=== PATIENT | male | born 1985 | race Two or more races ===

== ENCOUNTER 2024-01-05 22:29 | Emergency (ER) | payer MEDICAID, OTHER ==
[~2024-01-05] VITALS: Ht 170.2 cm; Wt 108.2 kg
[2024-01-05 23:12] VITALS: BP 125/78; PULSE 115; RESP 16; O2SAT 100
[2024-01-05 23:53] LABS: Urine Bacteria None Seen /hpf (None Seen)
[2024-01-06 00:06] LABS: Urine Blood 1+ /uL (Negative); Urine Clarity Clear (Clear); Urine Color Light-Yellow (Yellow); Urine Mucus FEW (None Seen); Urine Protein, UAD TRACE (Negative); Urine Specific Gravity 1.023 (1.001-1.035); Urine Urobilinogen Normal (Negative); Urine WBC <1 /hpf (0 - 3)
[2024-01-06] MEDS ORDERED: SODIUM CHLORIDE 0.9% 1,000 ML IV ONE (01:30)
[2024-01-06 01:39] LABS: Basophils # (auto) 0.1 10 ^3/uL (0-0.2); Basophils % (auto) 0.8 % (0.0-2.0); Eosinophils # (auto) 0.1 10 ^3/uL (0-0.8); Eosinophils % (auto) 1.1 % (0.0-7.0); Hematocrit 49.2 % (41.0-53.0); Hemoglobin 17.4 g/dL (13.5-17.5); Lymphocytes # (auto) 2.9 10 ^3/uL (0.4-5.4); Lymphocytes % (auto) 39.3 % (10.0-50.0); Mean Corpuscular Hemoglobin 29.4 pg (28.0-32.0); Mean Corpuscular Hgb Conc. 35.3 g/dL (32.0-36.0); Mean Corpuscular Volume 83.3 fL (80.0-100.0); Monocytes # (auto) 0.6 10 ^3/uL (0-1.3); Monocytes % (auto) 8.1 % (0.0-12.0); Neutrophils # (auto) 3.7 10 ^3/uL (1.6-8.6); Neutrophils % (auto) 50.7 % (37.0-80.0); Red Blood Cells 5.91 10^6/uL (4.5-5.90); Red Cell Distribution Width 13.2 % (11.8-14.3); White Blood Cell 7.4 10^3/uL (4.4-10.8)
[2024-01-06 01:57] LABS: Alanine Aminotransferase 119 U/L (7-40); Albumin 4.6 g/dL (3.2-4.8); Alkaline Phosphatase 101 U/L (46-116); Anion Gap 8 (5-15); Aspartate Aminotransferase 62 U/L (13-40); BUN/Creatinine Ratio 12.9 (10.0-20.0); Blood Urea Nitrogen 12 mg/dL (9-23); Calcium 10.6 mg/dL (8.7-10.4); Carbon Dioxide 24 mmol/L (20-30); Chloride 99 mmol/L (98-107); Glucose 246 mg/dL (74-106); Potassium 3.3 mmol/L (3.5-5.1); Sodium 131 mmol/L (136-145)
[2024-01-06 01:58] LABS: Bilirubin, Total 0.6 mg/dL (0.2-1.0); Total Protein 7.5 g/dL (5.7-8.2)
== END 2024-01-06 03:33 | disposition home or self-care (01) ==
LOC: ER 22:29
DX: E11.65 Type 2 diabetes mellitus with hyperglycemia (principal)
CPT/HCPCS: 36415; 80053; 81001; 82962; 83880; 84484; 85025

== ENCOUNTER 2025-05-12 15:51 | Inpatient (IN) | payer MEDICAID, OTHER ==
[~2025-05-12] VITALS: Ht 170.2 cm; Wt 96.4 kg
[2025-05-12] MEDS: SODIUM CHLORIDE 0.9% 1,000 ML IV ONE (16:39)
[2025-05-12] MEDS: ONDANSETRON HCL 4 MG/2 ML VIAL IV ONE (16:39)
[2025-05-12] MEDS: FAMOTIDINE (10MG/ML) 2ML VL IV ONE (16:39)
[2025-05-12] MEDS: MORPHINE SULFATE 4 MG/ML SYR/VIAL IV ONE (16:40)
[2025-05-12 16:46] VITALS: PULSE 95; RESP 16; O2SAT 95
--- NOTE | 2025-05-12 16:46 | ED.PDOC ---
History of Present Illness HPI Comments 39-year-old male presents to the ER with a prior medical history of hypertension, high lipids, diabetes and then chief complaint of flank pain. Patient reports on recently being [place]03[place]20[place] [facility] [place] and was admitted for three days and sent home on Tuesday of 05/05/2025. Patient states on still having the left flank pain for which is now tender to touch. Denies any other symptoms at this time. Denies chills, fever, N/V/D, SOB, CP. No other associated symptoms, modifiers, recent injuries or sick contacts present at this time. Chief Complaint: Flank Pain Time Seen by MD: 16:15 Reviewed Notes: Nurses Notes, Medications, Allergies Allergies: Coded Allergies: NO KNOWN ALLERGIES (Unverified , 01/06/24) Information Source: Patient Mode of Arrival: Ambulatory Severity: Moderate Timing: Days Duration: Days Prehospital treatment: None Past Medical History PAST MEDICAL HISTORY: DM, High Lipids, HTN Surgical History: Denies all surgeries Family History Family History: Reviewed,noncontributory to illness, Unknown Social History Smoker: Non-Smoker Alcohol: Denies ETOH Use Drugs: Denies Drug Use Lives In: Home Constitutional: denies: chills, diaphoresis, fatigue, fever, malaise, sweats, weakness, others EENTM: denies: blurred vision, double vision, ear bleeding, ear discharge, ear drainage, ear pain, ear ringing, eye pain, eye redness, hearing loss, mouth pain, mouth swelling, nasal discharge, nose bleeding, nose congestion, nose pain, photophobia, tearing, throat pain, throat swelling, voice changes, others Respiratory: denies: cough, hemoptysis, orthopnea, SOB at rest, shortness of breath, SOB with excertion, stridor, wheezing, others Cardiovascular: denies: chest pain, dizzy spells, diaphoresis, Dyspnea on exertion, edema, irregular heart beat, left arm pain, lightheadedness, palpitations, PND, syncope, others Gastrointestinal: denies: abdomen distended, abdominal pain, blood streaked bowels, constipated, diarrhea, dysphagia, difficulty swallowing, hematemesis, melena, nausea, poor appetite, poor fluid intake, rectal bleeding, rectal pain, vomiting, others Genitourinary: reports: flank pain; denies: burning, dysuria, frequency, hematuria, incontinence, penile discharge, penile sore, pain, testicle pain, testicle swelling, urgency, others Neurological: denies: dizziness, fainting, headache, left sided numbness, left sided weakness, numbness, paresthesia, pre-existing deficit, right sided numbness, right sided weakness, seizure, speech problems, tingling, tremors, weakness, others Musculoskeletal: denies: back pain, gout, joint pain, joint swelling, muscle pain, muscle stiffness, neck pain, others Integumetry: denies: bruises, change in color, change in hair/nails, dryness, laceration, lesions, lumps, rash, wounds, others Allergic/Immunocompromised: denies: Difficulty Healing, Frequent Infections, Hives, Itching, others Hematologic/Lymphatic: denies: anemia, blood clots, easy bleeding, easy bruising, swollen glands, others Endocrine: denies: excessive hunger, excessive sweating, excessive thirst, excessive urination, flushing, intolerance to cold, intolerance to heat, unexplained weight gain, unexplained weight loss, others Psychiatric: denies: anxiety, bipolar disorder, depression, hopeless, panic disorder, schizophrenia, sleepless, suicidal, others All Other Systems: Reviewed and Negative Physical Exam Exam Comments Sweating, ill-appearing General Appearance: No Apparent Distress, Normal HEENT: Normal ENT Inspection, Pharynx Normal, TMs Normal Neck: Full Range of Motion, Non-Tender, Normal, Normal Inspection Respiratory: Chest Non-Tender, Lungs Clear, No Accessory Muscle Use, No Respiratory Distress, Normal Breath Sounds Cardiovascular: No Edema, No JVD, No Murmur, No Gallop, Normal Peripheral Pulses, Regular Rate/Rhythm Breast Exam: Deferred Gastrointestinal: No Organomegaly, Non Tender, No Pulsatile Mass, Normal Bowel Sounds, Soft Genitalia: Deferred Pelvic: Deferred Rectal: Deferred Extremities: No calf tenderness, Normal capillary refill, Normal inspection, Normal range of motion, Non-tender, No pedal edema Musculoskeletal : Apperance: Normal Neurologic: Alert, automobile painter II-XII nml as Tested, No Motor Deficits, Normal Affect, Normal Mood, No Sensory Deficits Cerebellar Function: Normal Reflexes: Normal Skin: Dry, Normal Color, Warm Lymphatic: No Adenopathy Was a procedure done? Was a procedure done?: No Differential Dx Considerations may include: Gastroenteritis, gastritis, pancreatitis, electrolyte abnormality X-Ray, Labs, Meds, VS Vital Signs Date Time Temp Pulse Resp B/P (MAP) Pulse Ox O2 Delivery O2 Flow Rate FiO2 05/12/25 17:10 94 16 142/95 05/12/25 16:46 95 16 95 Room Air* 0 21 05/12/25 16:45 97.6 95 16 127/79 (95) 98 97.6 05/12/25 16:40 95 18 127/79 05/12/25 15:52 97.6 97 17 97/59 99 97.6 Lab Test 05/12/25 16:23 05/12/25 16:20 Range/Units Urine Color Light-yellow Yellow Urine Clarity Clear Clear Urine pH 7.0 5.0-9.0 Urine Specific [place] 1.028 1.001-1.035 Urine Protein Negative Negative Urine Ketones Negative Negative Urine Blood Trace H Negative /uL Urine Nitrite Negative Negative Urine Bilirubin Negative Negative Urine Urobilinogen Normal Negative mg/dL Urine Leukocyte Esterase Negative Negative /uL Urine RBC 3 0 - 3 /hpf Urine Microscopic WBC 1 0-3 /HPF Urine Squamous Epithelial Cells None seen <5 /hpf Urine Bacteria None seen None Seen /hpf Urine Glucose 4+ H Normal mg/dL White Blood Count 9.0 4.4-10.8 10^3/uL Red Blood Count 5.57 4.5-5.90 10^6/uL Hemoglobin 16.1 13.5-17.5 g/dL Hematocrit 45.4 41.0-53.0 % Mean Corpuscular Volume 81.6 80.0-100.0 fL Mean Corpuscular Hemoglobin 28.9 28.0-32.0 pg Mean Corpuscular Hemoglobin Concent 35.4 32.0-36.0 g/dL Red Cell Distribution Width 13.2 11.8-14.3 % Platelet Count 363 140-450 10^3/uL Mean Platelet Volume 8.1 6.9-10.8 fL Neutrophils (%) (Auto) 37.0-80.0 % Lymphocytes (%) (Auto) 10.0-50.0 % Monocytes (%) (Auto) 0.0-12.0 % Basophils (%) (Auto) 0.0-2.0 % Neutrophils # (Auto) 1.6-8.6 10 ^3/uL Lymphocytes # (Auto) 0.4-5.4 10 ^3/uL Monocytes # (Auto) 0-1.3 10 ^3/uL Differential Total Cells Counted 100.0 100 Neutrophils % (Manual) 62 37.0-80.0 Band Neutrophils % (Manual) 0 Lymphocytes % (Manual) 21 10.0-50.0 Monocytes % (Manual) 10 0-12 Eosinophils % (Manual) 2 0-7 Basophils % (Manual) 0 0.0-2.0 Metamyelocytes % (manual) 0 Myelocytes % (Manual) 1 Promyelocytes % (Manual) 0 Blast Cells % (Manual) 0 Reactive Lymphocytes 4 Platelet Estimate Adequate Red Blood Cell Morphology Normal Sodium Level 131 L 136-145 mmol/L Potassium Level 4.3 3.5-5.1 mmol/L Chloride Level 97 L 98-107 mmol/L Carbon Dioxide Level 25 20-31 mmol/L Anion Gap 9 5-15 Blood Urea Nitrogen 15 9-23 mg/dL Creatinine 0.74 0.700-1.30 mg/dL Glomerular Filtration Rate Calc 117 >90 mL/min BUN/Creatinine Ratio 20.3 H 10.0-20.0 Serum Glucose 393 H 74-106 mg/dL Calcium Level 9.6 8.7-10.4 mg/dL Total Bilirubin 0.3 0.2-1.0 mg/dL Aspartate Amino Transferase (AST) 33 13-40 U/L Alanine Aminotransferase (ALT) 62 H 7-40 U/L Alkaline Phosphatase 258 H 46-116 U/L Total Protein 7.4 5.7-8.2 g/dL Albumin 4.1 3.2-4.8 g/dL Lipase 86 H 12-53 U/L Current Medications Medications (Trade) Dose Ordered Sig/Deejay Route Start Time Stop Time Status Last Admin Sodium Chloride 1,000 ml @ 1,000 mls/hr Q1H ONCE IV 05/12/25 16:15 05/12/25 17:14 DC 05/12/25 16:39 Morphine Sulfate 4 mg ONCE ONCE IV 05/12/25 16:15 05/12/25 16:16 DC 05/12/25 16:40 Ondansetron HCl (Zofran) 4 mg ONCE ONCE IV 05/12/25 16:15 05/12/25 16:16 DC 05/12/25 16:39 Famotidine (Pepcid Injection) 20 mg ONCE ONCE IV 05/12/25 16:15 05/12/25 16:16 DC 05/12/25 16:39 Time of 1ST Reevaluation: 16:45 Reevaluation 1ST: Unchanged Patient Education/Counseling: Diagnosis, Treatment, Prognosis Family Education/Counseling: No Family Present SEPSIS Sepsis Screen Date sepsis recognized/suspect: May 12, 2025 Time Sepsis recognized/suspect: 1553 Recent Procedure: No On Antibiotic Therapy: No Respiratory Rate >20: No Heart Rate >90: Yes Temp<36 C (96.8 F) or >38.3 C: No SBP <90 or MAP <65 mmHG: No New Acute Mental Status Change: No Is the patient on CPAP, BIPAP,: No Vital Signs Date Time Temp Pulse Resp B/P (MAP) Pulse Ox O2 Delivery O2 Flow Rate FiO2 05/12/25 17:10 94 16 142/95 05/12/25 16:46 95 16 95 Room Air* 0 21 05/12/25 16:45 97.6 95 16 127/79 (95) 98 97.6 05/12/25 16:40 95 18 127/79 05/12/25 15:52 97.6 97 17 97/59 99 97.6 Laboratory Tests Test 05/12/25 16:20 White Blood Count 9.0 10^3/uL (4.4-10.8) Medications Medications Dose Ordered Sig/Deejay Route Start Time Stop Time Status Last Admin Dose Admin Famotidine 20 mg ONCE ONCE IV 05/12/25 16:15 05/12/25 16:16 DC 05/12/25 16:39 Morphine Sulfate 4 mg ONCE ONCE IV 05/12/25 16:15 05/12/25 16:16 DC 05/12/25 16:40 Ondansetron HCl 4 mg ONCE ONCE IV 05/12/25 16:15 05/12/25 16:16 DC 05/12/25 16:39 Sodium Chloride 1,000 ml @ 1,000 mls/hr Q1H ONCE IV 05/12/25 16:15 05/12/25 17:14 DC 05/12/25 16:39 Departure 1 Departure Time of Disposition: 18:27 (Patient presents intractable abdominal pain. Patient with elevated lipase elevated liver enzymes. Patient likely with a pancreatitis. We will admit patient for further workup and expert consultation) Impression: Primary Impression: Intractable abdominal pain Additional Impressions: Uncontrolled diabetes mellitus Pancreatitis Disposition: 09 ADMITTED INPATIENT Admit to: Med Surg Condition: Guarded Critical Care Note Critical Care Time?: Yes Critical care comment: Intractable abdominal pain Authorized and Performed by: Andrew Anaya MD Total critical care time: Approximately 38 minutes Due to a high probability of clinically significant, life threatening deterioration, the patient required my highest level of preparedness to intervene emergently and I personally spent this critical care time directly and personally managing the patient. This critical care time included obtaining a history; examining the patient; pulse oximetry; ordering and review of studies; arranging urgent treatment with development of a management plan; evaluation of patient's response to treatment; frequent reassessment; and, discussions with other providers. This critical care time was performed to assess and manage the high probability of imminent, life-threatening deterioration that could result in multi-organ failure. It was exclusive of separately billable procedures and treating other patients and teaching time. Please see my other sections and the rest of the note for further information on patient assessment and treatment. Stability Stability form required: No I personally scribed for ANDREW ANAYA MD ([email or web address]) on 05/12/25 at 16:46. Electronically submitted by Carlos Mejía ([email or web address]). ANDREW ANAYA MD May 12, 2025 16:46
[2025-05-12 16:53] LABS: Urine Protein, UAD Negative (Negative)
[2025-05-12 17:07] LABS: Hematocrit 45.4 % (41.0-53.0); Hemoglobin 16.1 g/dL (13.5-17.5); Mean Corpuscular Hemoglobin 28.9 pg (28.0-32.0); Mean Corpuscular Volume 81.6 fL (80.0-100.0)
[2025-05-12 17:21] LABS: Alanine Aminotransferase 62 U/L (7-40); Albumin 4.1 g/dL (3.2-4.8); Alkaline Phosphatase 258 U/L (46-116); Anion Gap 9 (5-15); BUN/Creatinine Ratio 20.3 (10.0-20.0); Blood Urea Nitrogen 15 mg/dL (9-23); Calcium 9.6 mg/dL (8.7-10.4); Carbon Dioxide 25 mmol/L (20-31); Chloride 97 mmol/L (98-107); Glucose 393 mg/dL (74-106); Lipase 86 U/L (12-53); Potassium 4.3 mmol/L (3.5-5.1); Sodium 131 mmol/L (136-145); Total Protein 7.4 g/dL (5.7-8.2)
[2025-05-12 17:27] LABS: Total Cells Counted 100.0 (100)
[2025-05-12 17:28] LABS: RBC Morphology Normal
[2025-05-12 17:29] LABS: Bilirubin, Total 0.3 mg/dL (0.2-1.0)
--- NOTE | 2025-05-12 19:09 | DVH ---
Exam: CT CT AB PEL WO CON-NO ORAL OR IV History: abdominal pain Comparison Study: None TECHNIQUE: Multidetector CT of the abdomen and pelvis was performed from lung bases to pubic symphysis. Imaging was performed without IV contrast. Axial, coronal, and sagittal multiplanar reformats were obtained from the axial data set by the technologist. RADIATION DOSE: CTDI vol 17.3 mGy. DLP 953.4 mGy.cm Findings: Limited evaluation of the solid organs in the absence of IV contrast. Lungs: Dense predominantly linear opacities within the qite-jyfauom-atws-right lung base. Liver: Hepatomegaly. Spleen: Unremarkable. Pancreas: There is peripancreatic stranding and fluid surrounding the pancreatic tail. There is an approximately 3.0 cm low attenuating lesion in the region of the pancreatic body. Gallbladder: Contracted in appearance. Cholelithiasis. Adrenals: Unremarkable Kidneys: Unremarkable. Pelvic Viscera: Distended urinary bladder. Vasculature: Mild atherosclerotic vascular calcification. Retroperitoneum: Shotty retroperitoneal nodes. Bowel: No bowel obstruction. The appendix is normal. Musculoskeletal: Unremarkable. Soft tissues: Unremarkable Impression: 1. Findings as above raising the possibility of acute pancreatitis in the appropriate clinical setting. 2. Suboptimally assessed approximately 3.0 cm mass in the region of the pancreatic body, MRCP is suggested in further assessment. 3. Dense predominantly linear opacities within the nrxq-fwwpzsh-wzej-right lung base, likely referable to atelectasis/scarring, though infectious/inflammatory process cannot be entirely excluded particularly within the left lower lobe. 4. Additional findings as detailed.
[2025-05-12] MEDS ORDERED: DEXTROSE (50%) 50ML SYRG IV PRN (19:45)
[2025-05-12] MEDS ORDERED: SODIUM CHLORIDE 0.9% 1,000 ML IV ONE (19:45)
[2025-05-12] MEDS: ONDANSETRON HCL 4 MG/2 ML VIAL IV PRN (20:22)
[2025-05-12] MEDS: MORPHINE SULFATE INJ 2 MG/ml SYRG IV PRN (20:23)
[2025-05-12 20:31] VITALS: PULSE 98; RESP 19; O2SAT 99
[2025-05-12 21:38] VITALS: TEMP 98.2
[2025-05-13] MEDS: ACCU-CHEK COMFORT CURVE STRIP VI SCH
[2025-05-13] MEDS: InsuLIN REG 1unit/0.01ml Soln (100units/ml) SC SCH
--- NOTE | 2025-05-13 00:25 | DVHHP2 ---
History of Present Illness Reason for Visit: Abdominal pain History of Present Illness 39-year-old male presents for evaluation of abdominal pain. Patient reports a one-week history of left-sided abdominal pain with associated nausea. He was admitted to [facility] and diagnosed with pancreatitis. He states he was discharged while still having pain. He continues having left- sided flank pain with nausea. Denies fever or chills. No other acute complaints. Past Medical History Hypertension, dyslipidemia, diabetes mellitus, pancreatitis Past Surgical History Denies Family History Noncontributory Smoke: No ALCOHOL: none Drugs: None Lives: with Family Review of Systems Review of Systems Review of systems are currently negative otherwise addressed in HPI. Allergies: Coded Allergies: NO KNOWN ALLERGIES (Unverified , 01/06/24) Medications Current Medications Medications Dose Ordered Sig/Deejay Route Start Time Stop Time Status Last Admin Dose Admin Pantoprazole Sodium 40 mg DAILY IV 05/13/25 10:00 Diagnostic Test (Pha) 1 strip Q6HR 05/13/25 00:00 Insulin Human Regular Q6HR SC 05/13/25 00:00 Dextrose 50 ml UD PRN IV 05/12/25 19:45 Ondansetron HCl 4 mg Q4HP PRN IV 05/12/25 19:45 05/12/25 20:22 4 MG Morphine Sulfate 2 mg Q4HPRN PRN IV 05/12/25 19:45 05/12/25 20:23 2 MG Exam Vital Signs Vital Signs Date Time Temp Pulse Resp B/P (MAP) Pulse Ox O2 Delivery O2 Flow Rate FiO2 05/12/25 21:38 98.2 103 20 125/74 (91) 96 98.2 05/12/25 20:31 Room Air* 0 21 Exam Gen: 39-year-old male in mild distress Skin: Warm, dry, normal color and texture, no rash. HEENT: Normocephalic atraumatic, mucous membranes moist and pink. Neck: Cervical and supraclavicular nodes normal without enlargement, trachea is midline, thyroid gland is normal without masses. Pulmonary: Clear to auscultation and percussion bilaterally. Cardiac: Regular rate and rhythm. No murmur Abdomen: Soft, left flank tenderness, nondistended, bowel sounds present all 4 quadrants, no guarding, no rigidity, no organomegaly. Extremities: No cyanosis, clubbing, no edema Neuro: Cranial nerves II through XII grossly intact, normal affect and speech, no focal motor deficits. Labs/Xrays ORDERING PHYSICIAN: ANDREW AARON MD PROCEDURE(s): ABPL - CT AB PEL WO CON-NO ORAL OR IV REASON: abdominal pain ORDER NUMBER(s): [id number], ACCESSION NUMBER(s): [id number] Exam: CT CT AB PEL WO CON-NO ORAL OR IV History: abdominal pain Comparison Study: None TECHNIQUE: Multidetector CT of the abdomen and pelvis was performed from lung bases to pubic symphysis. Imaging was performed without IV contrast. Axial, coronal, and sagittal multiplanar reformats were obtained from the axial data set by the technologist. RADIATION DOSE: CTDI vol 17.3 mGy. DLP 953.4 mGy.cm Findings: Limited evaluation of the solid organs in the absence of IV contrast. Lungs: Dense predominantly linear opacities within the kbtb-hnmrgbx-tyce-right lung base. Liver: Hepatomegaly. Spleen: Unremarkable. Pancreas: There is peripancreatic stranding and fluid surrounding the pancreatic tail. There is an approximately 3.0 cm low attenuating lesion in the region of the pancreatic body. Gallbladder: Contracted in appearance. Cholelithiasis. Adrenals: Unremarkable Kidneys: Unremarkable. Pelvic Viscera: Distended urinary bladder. Vasculature: Mild atherosclerotic vascular calcification. Retroperitoneum: Shotty retroperitoneal nodes. Bowel: No bowel obstruction. The appendix is normal. Musculoskeletal: Unremarkable. Soft tissues: Unremarkable Impression: 1. Findings as above raising the possibility of acute pancreatitis in the appropriate clinical setting. 2. Suboptimally assessed approximately 3.0 cm mass in the region of the pancreatic body, MRCP is suggested in further assessment. 3. Dense predominantly linear opacities within the dnpt-gzfnukw-ojpp-right lung base, likely referable to atelectasis/scarring, though infectious/inflammatory process cannot be entirely excluded particularly within the left lower lobe. 4. Additional findings as detailed. Labs Test 05/12/25 16:23 05/12/25 16:20 Range/Units Urine Color Light-yellow Yellow Urine Clarity Clear Clear Urine pH 7.0 5.0-9.0 Urine Specific [place] 1.028 1.001-1.035 Urine Protein Negative Negative Urine Ketones Negative Negative Urine Blood Trace H Negative /uL Urine Nitrite Negative Negative Urine Bilirubin Negative Negative Urine Urobilinogen Normal Negative mg/dL Urine Leukocyte Esterase Negative Negative /uL Urine RBC 3 0 - 3 /hpf Urine Microscopic WBC 1 0-3 /HPF Urine Squamous Epithelial Cells None seen <5 /hpf Urine Bacteria None seen None Seen /hpf Urine Glucose 4+ H Normal mg/dL White Blood Count 9.0 4.4-10.8 10^3/uL Red Blood Count 5.57 4.5-5.90 10^6/uL Hemoglobin 16.1 13.5-17.5 g/dL Hematocrit 45.4 41.0-53.0 % Mean Corpuscular Volume 81.6 80.0-100.0 fL Mean Corpuscular Hemoglobin 28.9 28.0-32.0 pg Mean Corpuscular Hemoglobin Concent 35.4 32.0-36.0 g/dL Red Cell Distribution Width 13.2 11.8-14.3 % Platelet Count 363 140-450 10^3/uL Mean Platelet Volume 8.1 6.9-10.8 fL Neutrophils (%) (Auto) 37.0-80.0 % Lymphocytes (%) (Auto) 10.0-50.0 % Monocytes (%) (Auto) 0.0-12.0 % Basophils (%) (Auto) 0.0-2.0 % Neutrophils # (Auto) 1.6-8.6 10 ^3/uL Lymphocytes # (Auto) 0.4-5.4 10 ^3/uL Monocytes # (Auto) 0-1.3 10 ^3/uL Differential Total Cells Counted 100.0 100 Neutrophils % (Manual) 62 37.0-80.0 Band Neutrophils % (Manual) 0 Lymphocytes % (Manual) 21 10.0-50.0 Monocytes % (Manual) 10 0-12 Eosinophils % (Manual) 2 0-7 Basophils % (Manual) 0 0.0-2.0 Metamyelocytes % (manual) 0 Myelocytes % (Manual) 1 Promyelocytes % (Manual) 0 Blast Cells % (Manual) 0 Reactive Lymphocytes 4 Platelet Estimate Adequate Red Blood Cell Morphology Normal Sodium Level 131 L 136-145 mmol/L Potassium Level 4.3 3.5-5.1 mmol/L Chloride Level 97 L 98-107 mmol/L Carbon Dioxide Level 25 20-31 mmol/L Anion Gap 9 5-15 Blood Urea Nitrogen 15 9-23 mg/dL Creatinine 0.74 0.700-1.30 mg/dL Glomerular Filtration Rate Calc 117 >90 mL/min BUN/Creatinine Ratio 20.3 H 10.0-20.0 Serum Glucose 393 H 74-106 mg/dL Calcium Level 9.6 8.7-10.4 mg/dL Total Bilirubin 0.3 0.2-1.0 mg/dL Aspartate Amino Transferase (AST) 33 13-40 U/L Alanine Aminotransferase (ALT) 62 H 7-40 U/L Alkaline Phosphatase 258 H 46-116 U/L Total Protein 7.4 5.7-8.2 g/dL Albumin 4.1 3.2-4.8 g/dL Lipase 86 H 12-53 U/L SEPSIS Sepsis Screen Date sepsis recognized/suspect: May 12, 2025 Time Sepsis recognized/suspect: 2030 Recent Procedure: No On Antibiotic Therapy: No Respiratory Rate >20: No Heart Rate >90: Yes Temp<36 C (96.8 F) or >38.3 C: No SBP <90 or MAP <65 mmHG: No New Acute Mental Status Change: No Is the patient on CPAP, BIPAP,: No Physician Orders Ct Ab Pel Wo Con-No Oral Or Iv (05/12/25 18:27) * [facility] Room Nurse (05/12/25 19:42) Pantoprazole (Protonix) (05/13/25 10:00) Sodium Chloride 0.9% (05/12/25 19:45) Glucose Blood (Accu-Chek Comfort Curve T (05/13/25 00:00) Insulin R (Human) (Insulin R) (05/13/25 00:00) Dextrose 50% Syringe (05/12/25 19:45) Admit (05/12/25 19:42) Ondansetron Hcl (Zofran) (05/12/25 19:45) Npo (Nothing By Mouth) Diet (05/13/25 Breakfast) Condition: Stable (05/12/25 19:42) Bedrest With Bathroom Privileg (05/12/25 19:42) Morphine Sulfate Injection (05/12/25 19:45) Vital Signs Date Time Temp Pulse Resp B/P (MAP) Pulse Ox O2 Delivery O2 Flow Rate FiO2 05/12/25 21:38 98.2 103 20 125/74 (91) 96 98.2 05/12/25 20:52 103 20 125/74 05/12/25 20:31 98 19 99 Room Air* 0 21 05/12/25 20:31 98.1 98 19 120/77 (91) 99 98.1 05/12/25 20:31 98.1 98 19 120/77 (91) 99 98.1 05/12/25 20:23 98 19 120/77 05/12/25 17:10 94 16 142/95 05/12/25 16:46 95 16 95 Room Air* 0 21 05/12/25 16:45 97.6 95 16 127/79 (95) 98 97.6 05/12/25 16:40 95 18 127/79 Laboratory Tests Test 05/12/25 16:20 White Blood Count 9.0 10^3/uL (4.4-10.8) Medications Medications Dose Ordered Sig/Deejay Route Start Time Stop Time Status Last Admin Dose Admin Famotidine 20 mg ONCE ONCE IV 05/12/25 16:15 05/12/25 16:16 DC 05/12/25 16:39 20 MG Morphine Sulfate 2 mg Q4HPRN PRN IV 05/12/25 19:45 05/12/25 20:23 2 MG Morphine Sulfate 4 mg ONCE ONCE IV 05/12/25 16:15 05/12/25 16:16 DC 05/12/25 16:40 4 MG Ondansetron HCl 4 mg ONCE ONCE IV 05/12/25 16:15 05/12/25 16:16 DC 05/12/25 16:39 4 MG Ondansetron HCl 4 mg Q4HP PRN IV 05/12/25 19:45 05/12/25 20:22 4 MG Sodium Chloride 1,000 ml @ 1,000 mls/hr Q1H ONCE IV 05/12/25 16:15 05/12/25 17:14 DC 05/12/25 16:39 1,000 MLS/HR Assessment/Plan Assessment/Plan Assessment Acute abdominal pain Acute pancreatitis ? Pancreatic mass Uncontrolled diabetes mellitus Plan Admit the patient to [facility] to the hospitalist Pain management NPO Maintenance IV fluids GI MRCP pending Continue treatment per orders. Plan discussed with: Patient My Orders Orders - MORA,DMITRY AGACNP Procedure Category Date Status Time * [facility] Room Nurse CONS 05/12/25 Transmitted 19:42 Pantoprazole PHA 05/13/25 In Process (Protonix) 10:00 Sodium Chloride 0.9% PHA 05/12/25 In Process 19:45 Glucose Blood PHA 05/13/25 In Process (Accu-Chek Comfort 00:00 Insulin R (Human) PHA 05/13/25 In Process (Insulin R) 00:00 Dextrose 50% Syringe PHA 05/12/25 In Process 19:45 Admit ADMIT 05/12/25 Transmitted 19:42 Ondansetron Hcl PHA 05/12/25 In Process (Zofran) 19:45 Npo (Nothing By DIET 05/13/25 Transmitted Mouth) Diet Breakfast Condition: Stable LAUREL 05/12/25 In Process 19:42 Bedrest With Bathroom LAUREL 05/12/25 In Process Privileg 19:42 Morphine Sulfate PHA 05/12/25 In Process Injection 19:45 Date of Service: May 12, 2025 Billing Provider: PATRICK MORA Common Visit Codes: [id number] INP/OBS CARE (MOD) PATRICK MORA May 13, 2025 00:25
[2025-05-13 01:53] VITALS: BP 116/66; PULSE 93; RESP 20; O2SAT 97
[2025-05-13] MEDS ORDERED: PANTOPRAZOLE 40 MG/10 ML VIAL INJ IV SCH (10:00)
== END 2025-05-13 05:30 | disposition left against medical advice (07) | DRG 440 ==
LOC: ER 15:51 → OVERFLOW 19:42
PROVIDERS: ADMIT Nurse Practitioner; ATTEND Nurse Practitioner
DX: K85.90 Acute pancreatitis without necrosis or infection, unspecified (principal); E11.65 Type 2 diabetes mellitus with hyperglycemia; I10 Essential (primary) hypertension; E78.5 Hyperlipidemia, unspecified; Z79.899 Other long term (current) drug therapy
CPT/HCPCS: 36415; 74176; 80053; 81001; 82962; 83690; 85007; 85027; 96361; 96374; 96375; 99291; G0378; J2405; J3490